=== PATIENT | male | born 1940 | race Caucasian/White ===

== ENCOUNTER 2019-07-02 02:10 | Day surgery (SDC) | payer MEDICARE, OTHER, SELFPAY ==
[2019-06-24 11:14] VITALS: BMI 33.7
--- NOTE | 2019-06-25 15:19 | PM.IMHP ---
H&P: HPI History of Present Illness Chief complaint: BPH with obstruction Narrative: Nando Goodwin is a 78 year old male with long-standing prostatism. He has been a patient of our since September 2005. He has had progressive difficulty voiding with a couple episodes of urinary retention. He is starting to fail medical management with alpha blockers. He prefers not to take 5 alpha reductase inhibitors because he frequently donate blood. Recent urodynamics in May 2019 continued to show an obstructive process with residual volumes of approximately 450 cc. After discussion of therapeutic options, including but not limited to, minimally invasive surgery such as UroliftMarc in laser prostatectomy, he has elected for a TURP. He is aware of risk of this including, but not limited to adverse cardiopulmonary events postoperative bleeding, failure to correct his voiding dysfunction, urinary incontinence and erectile dysfunction. Review of Systems Constitutional: Constitutional: Denies chills, Denies fatigue, Denies fever(s) and Denies headache(s) Eyes: Eyes: Denies blurry vision ENT: Denies vertigo, Denies dizziness, Denies headache(s) and Denies sore throat Cardiovascular: Cardiovascular: Denies chest pain, Denies syncope, Denies lightheadedness, Denies palpitations, Denies dyspnea and Denies dyspnea on exertion Respiratory: Respiratory: Denies hemoptysis, Denies dyspnea and Denies dyspnea on exertion Gastrointestinal: Gastrointestinal: Denies melena, Denies bloating, Denies hematochezia, Denies change in bowel habits, Denies change in stool character, Denies constipation, Denies diarrhea and Denies vomiting Genitourinary: Genitourinary: Denies hematuria, Denies dysuria, Denies testicular pain, Denies urinary frequency, Denies urinary hesitancy and Denies urinary urgency Integumentary/Breasts: Skin/Breast: Denies pruritus, Denies lesions and Denies rash Neurologic: Denies confusion, Denies vertigo, Denies dizziness, Denies syncope and Denies headache(s) Psychiatric: Psychiatric: Denies anxiety, Denies change in appetite and Denies confusion Endocrine: Endocrine: Denies fatigue and Denies palpitations PMFSH Social History Social History Gender identity (if verbalized by the patient): Male Meds Home Medications and Allergies Home Medications Medication Instructions Recorded Confirmed Type Adult One Daily Multivitamin 1 caplet PO DAILY 06/24/19 06/24/19 History Tylenol 350 mg PO DAILY 06/24/19 06/24/19 History ferrous fumarate-iron ps cmplx 1 tablet PO DAILY 06/24/19 06/24/19 History ibuprofen 600 mg PO HS 06/24/19 06/24/19 History naproxen 250 mg PO DAILY 06/24/19 06/24/19 History nifedipine 30 mg PO DAILY 06/24/19 06/24/19 History omega 1-vew-psc-fish oil [[place]-3] 1 cap PO DAILY 06/24/19 06/24/19 History tramadol 50 mg PO TID 06/24/19 06/24/19 History Allergies Allergy/AdvReac Type Severity Reaction Status Date / Time No Known Allergies Allergy Unverified 06/24/19 11:24 Exam Const: General: healthy appearing, comfortable, no acute distress and well developed; No confusion Nutritional Appearance: well nourished Orientation/consciousness: patient oriented x3 and No confusion HENMT: Head: normocephalic and atraumatic Ears: external ears normal Face and sinus: normal facial exam Mouth: Yes lip normal Teeth and gingiva: dentition normal Eyes: General: appearance normal, both eyes and all related structures Alignment and Position: alignment normal Eyelids: eyelids normal Cornea: corneas normal Pupils: Equal, round and reactive pupils present EOM: EOMs intact bilaterally Neck: Neck: normal visual inspection, full ROM and no JVD Chest: Chest palpation & inspection: normal inspection of the chest Resp: Effort & Inspection: normal respiratory effort and no use of accessory muscles Auscultation: clear to auscultation bilaterally Cardio: Jugular venous
[2019-07-02] VITALS (15 sets, daily range): BP systolic 96–156; BP diastolic 54–94; PULSE 60–94; RESP 12–20; TEMP 35.8–36.6; O2SAT 93–100
--- NOTE | 2019-07-02 07:32 | WPDHPUPDATE1 ---
History and Physical Update Update Date/Time: 07/02/19 07:32 History and Physical has been reviewed, including an updated exam of the patient. There are NO changes in the patient's condition. Risks, benefits, and alternatives have been discussed and questions answered. Patient agrees to proceed with procedure.
--- NOTE | 2019-07-02 09:42 | ECG_ITS ---
Measurements Intervals [place] Rate: 81 P: 19 MO: 201 QRS: -27 QRSD: 124 T: 33 QT: 382 QTc: 444 Interpretive Statements SINUS RHYTHM RSR' IN V1 OR V2, CONSIDER RIGHT VENTRICULAR HYPERTROPHY OR RIGHT VCD BORDERLINE R WAVE PROGRESSION, ANTERIOR LEADS BORDERLINE ECG Electronically Signed On 07-02-2019 9:59:44 CDT by Aakash Kearns D.O.
--- NOTE | 2019-07-02 10:03 | P.PNAN_ITS ---
Anes - Initial Pre Proc Eval Procedure: Operation Date: 07/02/19 11:30 Proposed Procedures p Trans Urethral Resection Prostate - Jakub Rosa MD Date/Time: 07/02/19 10:03 Surgeon: Jakub Rosa MD Pre Op Diagnosis: BPH with obstruction Patient Data Age: 78 Gender: M Height: 5 ft 7 in Weight: 94.9 kg Last Vital Signs Temp 36.6 C 07/02/19 09:26 Pulse 86 07/02/19 09:26 Resp 20 07/02/19 09:26 BP 145/79 H 07/02/19 09:26 Pulse Ox 97 07/02/19 09:26 Allergies Allergy/AdvReac Type Severity Reaction Status Date / Time No Known Allergies Allergy Unverified 07/02/19 09:33 Home Medications Medication Instructions Recorded Confirmed Type Adult One Daily Multivitamin 1 caplet PO DAILY 06/24/19 07/02/19 History Tylenol 350 mg PO DAILY 06/24/19 07/02/19 History ferrous fumarate-iron ps cmplx 1 tablet PO DAILY 06/24/19 07/02/19 History ibuprofen 600 mg PO HS 06/24/19 07/02/19 History naproxen 250 mg PO DAILY 06/24/19 07/02/19 History nifedipine 30 mg PO DAILY 06/24/19 07/02/19 History omega 2-dsg-dcs-fish oil [[place]-3] 1 cap PO DAILY 06/24/19 07/02/19 History tramadol 50 mg PO TID 06/24/19 07/02/19 History Patient hx anesthesia problems: none Family hx anesthesia problems: [facility] Past Medical History Medical History Chronic pain syndrome Hypertension Obesity Social History Social History Gender identity (if verbalized by the patient): Male Anes - Eval Final PreProcedure Day of Procedure 07/02/19 10:03 Patient weight: obese Heart: regular rate and rhythm Lungs: clear to auscultation Airway: Mallampati scale Neurological: alert and oriented ASA classification: I Emergent: no Anesthetic plan: proceed Anesthesia type and monitoring: general LMA and standard monitoring Informed Consent: The patient's anesthetic plan and its attendant risks and benefits were discussed with the patient/family/POA. Questions were solicited and answers provided to the satisfaction of the patient/family/POA.
[2019-07-02] MEDS: LACTATED RINGERS 1,000 ML 30 ML IV CONT (10:16)
[2019-07-02] MEDS: ceFAZolin 2 GM/D5W 50 ML 2 GM/50 ML BAG IVPB (11:36)
--- NOTE | 2019-07-02 13:00 | PM.PROC ---
Procedure Note - Detailed Date of procedure: 07/02/19 Pre-op diagnosis: BPH with obstruction Post-op diagnosis: same Procedure performed: TURP Description of procedure: The patient was brought to the operative suite where he is prepped and draped in routine sterile fashion while in the dorsal lithotomy position after the uneventful induction of a general LMA anesthetic. A 27 [place] resectoscope sheath was placed into his bladder. He had no urethral strictures. The patient had trilobar hyperplasia with a large median lobe. The bladder itself was endoscopically normal, showing no mucosal hyperemia, intravesical neoplasm or foreign bodies. There was a single, orthotopic ureteral orifice bilaterally. These orifices were identified and preserved throughout the remainder of the procedure. Attention was first turned to resection of the median lobe. This resection was undertaken from the bladder neck to the verumontanum and carried out until the transverse fibers of the bladder neck were identified. The left lateral lobe was then resected starting at the 6 o'clock position, working counter clockwise to the 12 o'clock position. Again, resection was carried out from the bladder neck to the verumontanum until the capsular fibers of the prostate were identified. The right lateral lobe was resected in a similar fashion starting at the 6 o'clock position working clockwise to the 12 o'clock position and carried out until the capsular fibers of the prostate were identified. Apical tissue was then circumferentially resected. All chips were evacuated from the bladder using an [employer] evacuator. Hemostasis was obtained with electric cautery. The ureteral orifices were again inspected and found to be without injury. Estimated blood loss throughout this procedure was []cc. The patient was taken to recovery room having tolerated this well. Anesthesia: GLMA Surgeon: Jakub Rosa MD Estimated blood loss (mL): 150 Drains: Yes Packing: No Pathology: yes Complications: No immediate complications Condition: stable Disposition: PACU
--- NOTE | 2019-07-02 14:53 | SUR.PHASEI ---
1420 DR TEJADA AT BEDSIDE- ASSESSING URINE COLOR. TRACTION APPLIED TO LOVELL CATHETER WITH TAPE PER
[2019-07-02] MEDS: HYOSCYAMINE SULFATE 0.125 MG TABLET SUBLINGUAL ×2 (16:01→23:03)
[2019-07-02] MEDS: MORPHINE SULFATE 2 MG/ML INJ IV PUSH (16:10)
--- NOTE | 2019-07-02 16:45 | PC.NURSE ---
Dr Rosa notified of bloody thick red urine with CBI running at wide open rate. CBI and villela occluded. Irrigated villela with 200 cc NS - returns slugglishly via syringe with several moderate sized red clots noted. CBI then returned at wide open rate with urine flowing freely. Patient c/o severe bladder spasms and pressure and incontinent of stool. Dr Rosa will see patient.
--- NOTE | 2019-07-02 16:46 | PC.NURSE ---
Dr Rosa at bedside. Villela removed after irrigation and replaced with #[address] ville[address]. Patient tolerated well - injected with Urojets x 2 prior to villela reinsertion.
--- NOTE | 2019-07-02 16:55 | ADMGEN ---
This patient, Nando Goodwin, was admitted to [facility] Surg Room 307-01. Patient/family oriented to hospital policies and general routines including ID bracelet, bed and alarms, visiting hours, pain management, procedures, bathroom and other care routines, personal items, smoking policy, room service/diet, and visiting hours. Valuables list has been completed. Information on how to activate the Rapid Response Team has been discussed. Patient/Family are encouraged to report perceived risks to care and to ask questions if they do not understand what they are told or what they should do.
[2019-07-02] MEDS: LIDOCAINE HCL 2% GEL UROJET 10 ML PKG MUCOUS MEM (16:59)
[2019-07-02] MEDS: DOCUSATE SODIUM 100 MG CAPSULE PO (17:13)
[2019-07-02 21:07] LABS: Hemoglobin 11.8 g/dL (14.0-18.0)
[2019-07-02] MEDS: DEXTROSE 5%/LACTATED RINGERS 1,000 ML 125 ML IV CONT (21:15)
[2019-07-02 21:59] LABS: Glucose Point of Care 198 (65-105)
[2019-07-03 02:00] VITALS: BP 131/61; PULSE 83; RESP 16; TEMP 36.4; O2SAT 98
[2019-07-03] MEDS: DEXTROSE 5%/LACTATED RINGERS 1,000 ML 125 ML IV CONT (05:30)
[2019-07-03] MEDS: HYOSCYAMINE SULFATE 0.125 MG TABLET SUBLINGUAL (05:31)
[2019-07-03 06:00] VITALS: BP 127/60; PULSE 88; RESP 18; TEMP 36.5; O2SAT 98
[2019-07-03 06:08] LABS: Hematocrit 30.4 % (42.0-52.0); Hemoglobin 10.2 g/dL (14.0-18.0)
[2019-07-03 06:20] LABS: Blood Urea Nitrogen 30 mg/dL (9-20); Calcium 7.6 mg/dL (8.4-10.2); Carbon Dioxide 27 mmol/L (22-30); Chloride 102 mmol/L (98-107); Estimated CRCL calculation 38 ml/min; Estimated Glomerular Filt Rate 42; Glucose 169 mg/dL (75-110); Potassium 4.5 mmol/L (3.4-5.0); Sodium 133 mmol/L (137-145)
--- NOTE | 2019-07-03 07:55 | WPDUROPN2 ---
Progress Note: A&P Assessment and Plan (1) BPH loc w urin obs/LUTS: Code(s): N40.1 - Benign prostatic hyperplasia with lower urinary tract symptoms Status: Acute Assessment and Plan: Challenging post-TURP management. Very large prostate resection with moderate post-op hematuria (as expected) exacerbated by intractable bladder spasms. Urine this morning essentially clear on CBI. Spasms controlled with sublingual Levsin and B/O suppositories. Will try stopping CBI throughout today. Subjective Subjective Date/Time Seen: 07/03/19 07:55 POD #1 TURP (large prostate) Comfortable, no abd. pain, n/v. Review of Systems Cardiovascular: Cardiovascular: Denies chest pain, Denies lightheadedness, Denies palpitations and Denies dyspnea Respiratory: Respiratory: Denies dyspnea Gastrointestinal: Gastrointestinal: Denies diarrhea, Denies nausea and Denies vomiting Genitourinary: Genitourinary: Denies hematuria and Denies dysuria Endocrine: Endocrine: Denies palpitations Exam Const: General: no acute distress Resp: Effort & Inspection: normal respiratory effort GI: Inspection: non-distended GI Palp: No abdominal tenderness and No Guarding due to palpation present (GI) Auscultation: normal bowel sounds Urinary Catheter: Urinary Catheter: urine pink Objective Data Vital Signs Vital Signs: Vital Signs - 24 hr 07/02/19 09:26 07/02/19 13:03 07/02/19 13:09 Temperature 97.9 F 97.2 F L Pulse Rate 86 70 Respiratory Rate 20 12 12 Blood Pressure 145/79 H 142/92 H Pulse Oximetry 97 97 97 07/02/19 13:20 07/02/19 13:35 07/02/19 13:50 Temperature Pulse Rate 72 65 65 Respiratory Rate 16 13 14 Blood Pressure 133/68 136/86 148/80 H Pulse Oximetry 98 99 93 07/02/19 14:00 07/02/19 14:15 07/02/19 14:30 Temperature Pulse Rate 70 65 60 Respiratory Rate 14 12 12 Blood Pressure 150/93 H 156/94 H 138/76 Pulse Oximetry 97 98 98 07/02/19 14:45 07/02/19 15:10 07/02/19 15:25 Temperature 97.4 F L 96.4 F L Pulse Rate 67 74 85 Respiratory Rate 12 18 18 Blood Pressure 133/85 147/78 H 120/69 Pulse Oximetry 98 96 98 07/02/19 15:55 07/02/19 21:15 07/02/19 22:00 Temperature 97.1 F L 97.5 F L Pulse Rate 94 88 Respiratory Rate 16 18 Blood Pressure 120/67 96/54 L 118/58 L Pulse Oximetry 100 99 07/03/19 02:00 07/03/19 06:00 Temperature 97.6 F 97.7 F Pulse Rate 83 88 Respiratory Rate 16 18 Blood Pressure 131/61 127/60 Pulse Oximetry 98 98 Intake/Output Intake/Output: Intake & Output 06/30/19 07/01/19 07/02/19 07/03/19 23:59 23:59 23:59 23:59 Intake Total 6100 1000 Output Total 8050 Balance -1950 1000 Meds/Results Medications: Active Medications Generic Name Dose Route Start Last Admin Trade Name Freq PRN Reason Stop Dose Admin Hydrocodone Bitart/Acetaminophen 1 tab 07/02/19 14:55 [place] 5-325 Mg PO Q4H PRN Pain Rated 1-6 Belladonna Alkaloids/Opium 30 mg 07/03/19 00:00 07/03/19 07:07 B & O 15-A Suppos RECTAL 30 mg Q6HR KASHIF Administration Cephalexin HCl 500 mg 07/03/19 09:00 Keflex Capsule PO QID [facility] Docusate Sodium 100 mg 07/02/19 17:00 07/02/19 17:13 Colace Capsule PO 100 mg BID KASHIF Administration Hyoscyamine 0.125 mg 07/02/19 14:55 07/03/19 05:31 Levsin Tablet SUBLINGUAL 0.125 mg Q6H PRN Administration Bladder Spasm Dextrose/Lactated Ringer's 1,000 mls @ 125 mls/hr 07/02/19 14:55 07/03/19 05:30 Dextrose 5%/Lactated Ringers IV CONT 125 mls/hr .Q8H KASHIF Administration Morphine Sulfate 2 mg 07/02/19 14:55 07/02/19 16:10 Morphine Sulfate Inj IV PUSH 2 mg Q2H PRN Administration Pain Rated 7-10 Naloxone HCl 0.1 mg 07/02/19 14:55 Narcan IV PUSH Q2M PRN Opiate Reversal Nifedipine 30 mg 07/03/19 09:00 Procardia Xl PO DAILY [facility] Ondansetron HCl 4 mg 07/02/19 14:55 Zofran Inj IV PUSH Q12H PRN Nausea And Vomiting
[2019-07-03] MEDS: DOCUSATE SODIUM 100 MG CAPSULE PO ×2 (09:53→17:38)
[2019-07-03] MEDS: CEPHALEXIN 500 MG CAPSULE PO ×4 (09:53→21:29)
[2019-07-03] MEDS: NIFEdipine 30 MG TAB.ER.24 PO (09:53)
[2019-07-03 10:00] VITALS: BP 108/69; PULSE 104; RESP 18; TEMP 36.3; O2SAT 99
[2019-07-03 14:00] VITALS: BP 123/64; PULSE 96; RESP 18; TEMP 36.4; O2SAT 97
--- NOTE | 2019-07-03 15:53 | WPDANESPN ---
Anes - Prog Note Post-Op Date/Time: 07/03/19 15:53 Cardiovascular status: normal Respiratory status: normal Airway patency: baseline Mental status: baseline Post-Op hydration status: normal Vital Signs: Last Vital Signs Temp 36.3 C L 07/03/19 10:00 Pulse 104 H 07/03/19 10:00 Resp 18 07/03/19 10:00 BP 108/69 07/03/19 10:00 Pulse Ox 99 07/03/19 10:00 I/O: Intake & Output 07/02/19 07/03/19 07/03/19 23:59 07:59 15:59 Intake Total 50 1000 2440 Output Total 500 1450 Balance -450 1000 990 Laboratory Tests 07/03/19 05:08 07/03/19 05:08 07/02/19 07/02/19 07/03/19 20:15 21:02 05:08 Hgb 11.8 L 10.2 L Hct 35.0 L 30.4 L Sodium Potassium Chloride Carbon Dioxide BUN Creatinine Estim Creat Clear Calc Estimated GFR Glucose POC Capillary Glucose 198 H Calcium 07/03/19 05:08 Hgb Hct Sodium 133 L Potassium 4.5 Chloride 102 Carbon Dioxide 27 BUN 30 H Creatinine 1.60 H Estim Creat Clear Calc 38 Estimated GFR 42 L Glucose 169 H POC Capillary Glucose Calcium 7.6 L Post-procedural complaints: none Patient Feedback: Patient satisfied with anesthetic care.
[2019-07-03 18:00] VITALS: BP 120/73; PULSE 99; RESP 18; TEMP 36.9; O2SAT 97
[2019-07-03 22:03] VITALS: BP 144/65; PULSE 97; RESP 18; TEMP 36.6; O2SAT 97
[2019-07-04 02:00] VITALS: BP 140/60; PULSE 97; RESP 20; TEMP 36.9; O2SAT 100
[2019-07-04 06:00] VITALS: BP 149/60; PULSE 94; RESP 18; TEMP 37.4; O2SAT 91
--- NOTE | 2019-07-04 07:40 | WPDUROPN2 ---
Progress Note: A&P Assessment and Plan (1) BPH loc w urin obs/LUTS: Code(s): N40.1 - Benign prostatic hyperplasia with lower urinary tract symptoms Status: Acute Assessment and Plan: POD#2 s/p TURP Rivas out and pt is voiding without difficult Ambulate Reg diet Wean O2 off Discharge planning. Time Spent With Patient Time with patient: 15 - 25 minutes Subjective Subjective Date/Time Seen: 07/04/19 07:40 POD #2 s/p TURP Rivas removed this AM. Has voided several times. Is having loose stools related to stool softner. Has ambulated once. Exam Const: General: cooperative, healthy appearing and comfortable Orientation/consciousness: patient oriented x3 HENMT: Head: normal to inspection Chest: Chest palpation & inspection: normal inspection of the chest Resp: Effort & Inspection: normal respiratory effort GI: GI Palp: No abdominal tenderness Objective Data Vital Signs Vital Signs: Vital Signs - 24 hr 07/03/19 10:00 07/03/19 14:00 07/03/19 18:00 Temperature 36.3 C L 36.4 C 36.9 C Pulse Rate 104 H 96 99 Respiratory Rate 18 18 18 Blood Pressure 108/69 123/64 120/73 Pulse Oximetry 99 97 97 07/03/19 22:03 07/04/19 02:00 07/04/19 06:00 Temperature 36.6 C 36.9 C 37.4 C Pulse Rate 97 97 94 Respiratory Rate 18 20 18 Blood Pressure 144/65 H 140/60 149/60 H Pulse Oximetry 97 100 91 Intake/Output Intake/Output: Intake & Output 07/01/19 07/02/19 07/03/19 07/04/19 23:59 23:59 23:59 23:59 Intake Total 6100 5300 Output Total 8050 3150 1430 Balance -1950 2150 -1430 Meds/Results Medications: Active Medications Generic Name Dose Route Start Last Admin Trade Name Freq PRN Reason Stop Dose Admin Hydrocodone Bitart/Acetaminophen 1 tab 07/02/19 14:55 [place] 5-325 Mg PO Q4H PRN Pain Rated 4-6 Belladonna Alkaloids/Opium 30 mg 07/03/19 00:00 07/04/19 06:01 B & O 15-A Suppos RECTAL 30 mg Q6HR KASHIF Administration Cephalexin HCl 500 mg 07/03/19 09:00 07/03/19 21:29 Keflex Capsule PO 500 mg QID KASHIF Administration Docusate Sodium 100 mg 07/02/19 17:00 07/03/19 17:38 Colace Capsule PO 100 mg BID KASHIF Administration Hyoscyamine 0.125 mg 07/02/19 14:55 07/03/19 05:31 Levsin Tablet SUBLINGUAL 0.125 mg Q6H PRN Administration Bladder Spasm Dextrose/Lactated Ringer's 1,000 mls @ 125 mls/hr 07/02/19 14:55 07/03/19 14:45 Dextrose 5%/Lactated Ringers IV CONT Infused .Q8H KASHIF Infusion Acetaminophen 1,000 mg in 100 mls @ 400 mls/hr 07/03/19 10:15 07/03/19 12:40 Ofirmev 1,000 Mg Ivpb IVPB 07/04/19 10:16 Infused Q6H PRN Infusion Pain Rated 1-3 Morphine Sulfate 2 mg 07/02/19 14:55 07/02/19 16:10 Morphine Sulfate Inj IV PUSH 2 mg Q2H PRN Administration Pain Rated 7-10 Naloxone HCl 0.1 mg 07/02/19 14:55 Narcan IV PUSH Q2M PRN Opiate Reversal Nifedipine 30 mg 07/03/19 09:00 07/03/19 09:53 Procardia Xl PO 30 mg DAILY KASHIF Administration Ondansetron HCl 4 mg 07/02/19 14:55 Zofran Inj IV PUSH Q12H PRN Nausea And Vomiting
[2019-07-04] MEDS: CEPHALEXIN 500 MG CAPSULE PO (08:25)
[2019-07-04] MEDS: NIFEdipine 30 MG TAB.ER.24 PO (08:25)
== END 2019-07-04 10:34 | disposition home or self-care (01) ==
LOC: ANHSURGERY 09:43 → ANH3MEDSUR 23:29
PROVIDERS: PCP Internal Medicine; Visit Provider Urology
PROC: 0VT08ZZ Resection of Prostate, Via Natural or Artificial Opening Endoscopic (ICD-10-PCS; CPT 52601; principal; 2019-07-02 11:30)
DX: N40.1 Benign prostatic hyperplasia with lower urinary tract symptoms (principal); N13.8 Other obstructive and reflux uropathy; N32.89 Other specified disorders of bladder; I10 Essential (primary) hypertension; G89.4 Chronic pain syndrome; E66.9 Obesity, unspecified; Z68.32 Body mass index [BMI] 32.0-32.9, adult; Z79.891 Long term (current) use of opiate analgesic
CPT/HCPCS: 52601; 36415; 80048; 85014; 85018; 88305; 93005; A9270; C1758; J0131; J0690; J1100; J2270; J2405; J2704; J3010; J7120; J7121

== ENCOUNTER 2020-11-09 08:26 | Outpatient (CLI) | payer MEDICARE, OTHER, SELFPAY ==
--- NOTE | ~2020-11-09 | XR_ITS ---
EXAMINATION: XR abdomen/kub 1V DATE: 11/09/2020 08:46 INDICATION: Gross hematuria. TECHNIQUE: A supine view of the abdomen on 2 radiographs was obtained. COMPARISON: CT abdomen and pelvis 11/09/2020 FINDINGS: There are no dilated loops of bowel. There is no urolithiasis. There is a phlebolith in lef t pelvis. There are surgical clips in the pelvis. Surgical clips in the right upper quadrant are like ly from cholecystectomy. IMPRESSION: 1. No urolithiasis. Reviewed, dictated and finalized at location B. IMPRESSION: 1. No urolithiasis.
--- NOTE | ~2020-11-09 | CT_ITS ---
EXAMINATION: CT abdomen pelvis wo/w con DATE: 11/09/2020 09:21 INDICATION: Gross hematuria. TECHNIQUE: Computed tomography (CT) of the abdomen and pelvis was performed without and with intraven ous contrast using a total of 130 mL Omnipaque-350 intravenous contrast with a double-bolus technique for simultaneous opacification of the renal parenchyma and renal collecting system. Automated exposu re control and iterative reconstruction technique were employed. The dose-length product was 2563.00 mGy-cm. COMPARISON: None FINDINGS: The visualized portions of the lung bases demonstrate mild atelectasis. A calcified right lung nodule and calcified right hilar lymph nodes are consistent with old granulomatous disease. No pleural effu bailey. The heart size is normal. There are coronary artery calcifications. No pericardial effusion. Th ere is a small sliding hiatal hernia. The liver and spleen are normal. There are changes of cholecyst ectomy. The pancreas and adrenal glands are normal. There is a 4 mm cyst in right kidney. There are p eripelvic cysts in left kidney measuring up to 2.7 cm. There is no urolithiasis. The ureters are well opacified and are normal. The prostate is moderately enlarged. There are likely changes of transuret hral resection of the prostate. The bladder demonstrates a trabeculated wall, likely secondary to chr onic outlet obstruction. There are bilateral inguinal hernias containing fat. There is diverticulosis of the colon without evidence of diverticulitis. There are no dilated loops of bowel. The appendix i s normal. There are no pathologically enlarged lymph nodes. There is no free intraperitoneal fluid. T here is severe lumbar spondylosis. IMPRESSION: 1. No specific etiology for hematuria. Reviewed, dictated and finalized at location B.
[2020-11-09 09:00] LABS: Estimated Glomerular Filt Rate > 60
== END 2020-11-09 08:27 | disposition home or self-care (01) ==
LOC: ANHIMG 08:27
PROVIDERS: PCP Internal Medicine; Visit Provider Urology
DX: R31.0 Gross hematuria (principal)
CPT/HCPCS: 74018; 74178; Q9967

== ENCOUNTER 2021-02-24 11:23 | Outpatient (CLI) | payer MEDICARE, OTHER, SELFPAY ==
--- NOTE | 2021-02-24 11:30 | ECG_ITS ---
Measurements Intervals [place] Rate: 77 P: 42 IL: 216 QRS: -16 QRSD: 135 T: 45 QT: 406 QTc: 462 Interpretive Statements SINUS RHYTHM WITH FIRST DEGREE AV BLOCK ATRIAL PREMATURE COMPLEX RIGHT BUNDLE BRANCH BLOCK INFERIOR INFARCT, AGE INDETERMINATE ABNORMAL ECG Electronically Signed On 02-24-2021 11:55:00 STAMP PRESSER by Aakash Kearns D.O.
== END 2021-02-24 11:24 | disposition home or self-care (01) ==
LOC: ANHSURGERY 11:30
PROVIDERS: PCP Internal Medicine; Visit Provider Urology
DX: I10 Essential (primary) hypertension (principal); Z01.818 Encounter for other preprocedural examination; I44.0 Atrioventricular block, first degree; I45.10 Unspecified right bundle-branch block
CPT/HCPCS: 93005

== ENCOUNTER 2021-03-02 00:34 | Day surgery (SDC) | payer MEDICARE, OTHER, SELFPAY ==
[2021-02-23 12:58] VITALS: BMI 35.2
--- NOTE | 2021-02-23 13:09 | PC.NURSE ---
Report to the Outpatient Waiting Room, entrance under the green pavilion located off [facility], at time __11:45AM on date __03/02/21 . OR Time: ___1:45PM . - You and your visitor will be asked a series of questions to screen for COVID 19 for your protection. - A mask is required within the hospital. - Only one visitor is allowed at this time. Patient visitors will be guided where to wait when not with patient. Preoperative COVID Testing Requirements: No COVID Test needed if: (proof is required; if not received patient will have Rapid Test prior to entry) - Patient has received COVID Vaccine at least 14 days prior to procedure date or - Patient has positive COVID test result within last 90 days of surgery date. COVID Test needed if above criteria is not met If not COVID vaccinated a COVID test must be conducted within 72 hours of surgery and patient is asked to isolate self from time of testing until procedure. You will go to the [facility] for your COVID testing. The [facility] [facility] is located at the corner of [address] [facility]. You will only be called if COVID results are positive and your surgeon may reschedule your elective surgery date. Patients may have clear liquids (water, carbonated beverages, clear teas, apple juice) until 3 hours prior to surgery with a maximum of 20 ounces. - No food from midnight until time of surgery - Infants may have breast milk until 4 hours before surgery, infant formula 6 hours prior to surgery. - Children will be allowed to drink immediately following surgery. If applicable, please bring a bottle or sippy cup to assist with drinking. Juice, water, soda, and popsicles are readily available. For infants on formula, please bring formula the day of surgery. Pacifiers are allowed. Take the following medications with a SIP of water the morning of surgery: NIFEDIPINE Medications to discontinue per physician HOLD VIT/SUPPLEMENTS 3 DAYS PRE-OP Date to take last dose 02/27/21 Please no make-up, nail slovenian, hairspray, perfume, deodorant, or body powder the day of surgery. No jewelry (including any body piercings) or valuables the day of surgery, leave them at home. Please take a shower or bath the night before, or the morning of, surgery with an antibacterial soap. Wear comfortable, loose fitting clothing. Children are encouraged to wear pajamas. - Jewelry must be removed prior to entering the operating room. Rings and piercings that are not removed may be cut off. - The hospital will not accept responsibility for valuables. - Please leave all valuables, including medications, at home the day of surgery. If you are going home after surgery, a licensed jinrikisha driver must drive you home. - NO public transportation without another adult. - We recommend that an adult stay with you for 24 hours following discharge. - We also recommend that you do not drive, make important decision, drink alcoholic beverages, or take any drugs that were not prescribed by your health care provider for at least 24 hours after your discharge time. For Pediatric surgeries, we recommend two adults accompany the child home (only one inside the building at this time). Follow any additional instructions given to you from your surgeon. Telephone instructions given to ___PATIENT and asked if any additional questions and then verbalized understanding. Patient advised to call surgeon office or pre surgery nurse liaison [phone] if any additional questions.
--- NOTE | 2021-02-27 07:23 | P.HP_ITS ---
History of Present Illness History of Present Illness Consent: Risks, benefits, and alternatives have been discussed and questions answered. Patient agrees to proceed with procedure. Chief complaint: gross hematuria, bladder stone Narrative: Nando Goodwin is a 80 year old male Who recently underwent evaluation for solitary episode transient gross hematuria. CT abd/pelvis w/wo contrast showed upper urinary tracts but bladder calculus. Cystoscopy showed s mall to moderate-sized bladder calculus which was likely just big enough not to be removed in presents for cystoscopy bladder stone extraction. He is aware of the risk urethral injury, hematuria and subsequent urethral stricture Review of Systems Cardiovascular: Cardiovascular: Denies chest pain, Denies lightheadedness, Denies palpitations and Denies dyspnea Respiratory: Respiratory: Denies dyspnea Gastrointestinal: Gastrointestinal: Denies diarrhea, Denies nausea and Denies vomiting Genitourinary: Genitourinary: Denies hematuria and Denies dysuria Endocrine: Endocrine: Denies palpitations [facility] Past Medical History Medical History (Updated 02/27/21 @ 07:25 by Jakub Rosa MD) Chronic pain syndrome Hypertension Obesity Social History Social History Smoking packs per day: 3 Smoking cigarettes per day: 60.0 Years smoked: 4 Smoking pack-years: 12.00 Smoking status: Former smoker Tobacco type: cigarettes Second hand tobacco smoke exposure: No Smoking end date: 09/22/1956 Alcohol intake: never Substance use: never Additional living arrangements comments: SPOUSE Gender identity (if verbalized by the patient): Male Spiritual care concerns: No Agree to blood products: Yes Meds Home Medications and Allergies Home Medications Medication Instructions Recorded Confirmed Type naproxen 250 mg PO BID PRN 06/24/19 02/23/21 History nifedipine 30 mg PO QAM 06/24/19 02/23/21 History omega 3-omz-xnu-fish oil [[place]-3] 1 cap PO DAILY 06/24/19 02/23/21 History acetaminophen [Tylenol Extra 1,000 mg PO Q6H PRN 02/23/21 02/23/21 History Strength] ferrous fumarate 55 mg PO DAILY 02/23/21 02/23/21 History ibuprofen 600 mg PO Q6H PRN 02/23/21 02/23/21 History loratadine [Claritin] 10 mg PO DAILY 02/23/21 02/23/21 History multivitamin [Multiple Vitamin] 1 tablet PO DAILY 02/23/21 02/23/21 History pregabalin 50 mg PO TID 02/23/21 02/23/21 History Allergies Allergy/AdvReac Type Severity Reaction Status Date / Time No Known Allergies Allergy Unverified 02/23/21 12:48 Exam Const: General: no acute distress Resp: Effort & Inspection: normal respiratory effort GI: Inspection: non-distended GI Palp: No abdominal tenderness and No Guarding due to palpation present (GI) Auscultation: normal bowel sounds Assessment and Plan Assessment and plan (1) BPH loc w urin obs/LUTS: Code(s): N40.1 - Benign prostatic hyperplasia with lower urinary tract symptoms Status: Acute (2) Bladder stone: Code(s): N21.0 - Calculus in bladder Status: Acute Assessment and Plan: * Cystoscopy, bladder stone extraction
--- NOTE | 2021-03-02 06:50 | PM.HPGS ---
History of Present Illness History of Present Illness Consent: Risks, benefits, and alternatives have been discussed and questions answered. Patient agrees to proceed with procedure. Chief complaint: gross hematuria, bladder stone Narrative: Nando Goodwin is a 80 year old male [facility] Past Medical History Medical History (Updated 02/27/21 @ 07:25 by Jakub Rosa MD) Chronic pain syndrome Hypertension Obesity Social History Social History Smoking packs per day: 3 Smoking cigarettes per day: 60.0 Years smoked: 4 Smoking pack-years: 12.00 Smoking status: Former smoker Tobacco type: cigarettes Second hand tobacco smoke exposure: No Smoking end date: 09/22/1956 Alcohol intake: never Substance use: never Living arrangements: with family Additional living arrangements comments: SPOUSE Gender identity (if verbalized by the patient): Male Spiritual care concerns: No Agree to blood products: Yes Meds Home Medications and Allergies Home Medications Medication Instructions Recorded Confirmed Type naproxen 250 mg PO BID PRN 06/24/19 02/23/21 History nifedipine 30 mg PO QAM 06/24/19 02/23/21 History omega 5-nmr-wzr-fish oil [[place]-3] 1 cap PO DAILY 06/24/19 02/23/21 History acetaminophen [Tylenol Extra 1,000 mg PO Q6H PRN 02/23/21 02/23/21 History Strength] ferrous fumarate 55 mg PO DAILY 02/23/21 02/23/21 History ibuprofen 600 mg PO Q6H PRN 02/23/21 02/23/21 History loratadine [Claritin] 10 mg PO DAILY 02/23/21 02/23/21 History multivitamin [Multiple Vitamin] 1 tablet PO DAILY 02/23/21 02/23/21 History pregabalin 50 mg PO TID 02/23/21 02/23/21 History Allergies Allergy/AdvReac Type Severity Reaction Status Date / Time No Known Allergies Allergy Unverified 02/23/21 12:48
--- NOTE | 2021-03-02 08:46 | P.PNAN_ITS ---
Anes - Initial Pre Proc Eval Procedure: Operation Date: 03/02/21 13:45 Proposed Procedures p Cystoscopy, with Bladder Stones Extraction - Jakub Rosa MD Date/Time: 03/02/21 08:46 Surgeon: Jakub Rosa MD Pre Op Diagnosis: gross hematuria, bladder stone Patient Data Age: 80 Gender: M Height: 1.7 m Weight: 102 kg Allergies Allergy/AdvReac Type Severity Reaction Status Date / Time No Known Allergies Allergy Unverified 02/23/21 12:48 Home Medications Medication Instructions Recorded Confirmed Type naproxen 250 mg PO BID PRN 06/24/19 02/23/21 History nifedipine 30 mg PO QAM 06/24/19 02/23/21 History omega 6-roy-ivx-fish oil [[place]-3] 1 cap PO DAILY 06/24/19 02/23/21 History acetaminophen [Tylenol Extra 1,000 mg PO Q6H PRN 02/23/21 02/23/21 History Strength] ferrous fumarate 55 mg PO DAILY 02/23/21 02/23/21 History ibuprofen 600 mg PO Q6H PRN 02/23/21 02/23/21 History loratadine [Claritin] 10 mg PO DAILY 02/23/21 02/23/21 History multivitamin [Multiple Vitamin] 1 tablet PO DAILY 02/23/21 02/23/21 History pregabalin 50 mg PO TID 02/23/21 02/23/21 History Patient hx anesthesia problems: none Family hx anesthesia problems: none Results Review: All pre-operative results and documents have been reviewed as part of the pre-operative evaluation. [facility] Past Medical History Medical History (Updated 02/27/21 @ 07:25 by Jakub Rosa MD) Chronic pain syndrome Hypertension Obesity Social History Social History Smoking packs per day: 3 Smoking cigarettes per day: 60.0 Years smoked: 4 Smoking pack-years: 12.00 Smoking status: Former smoker Tobacco type: cigarettes Second hand tobacco smoke exposure: No Smoking end date: 09/22/1956 Alcohol intake: never Substance use: never Living arrangements: with family Additional living arrangements comments: SPOUSE Gender identity (if verbalized by the patient): Male Spiritual care concerns: No Agree to blood products: Yes Anes - Eval Final PreProcedure Day of Procedure 03/02/21 08:46 Patient weight: obese Heart: regular rate and rhythm Lungs: clear to auscultation and normal air movement Airway: Mallampati scale class II Neurological: alert and oriented Last oral intake: >/= 8 hours ASA classification: III Emergent: no Anesthetic plan: proceed Anesthesia type and monitoring: general LMA and standard monitoring Results Review: All pre-operative results and documents have been reviewed as part of the pre-operative evaluation. Informed Consent: The patient's anesthetic plan and its attendant risks and benefits were discussed with the patient/family/POA. Questions were solicited and answers provided to the satisfaction of the patient/family/POA.
[2021-03-02 12:40] VITALS: BP 139/82; PULSE 72; RESP 18; TEMP 36.3; O2SAT 100; BMI 35.6
--- NOTE | 2021-03-02 12:41 | SUR.PREOP ---
1230; DR TEJADA IN ROOM SPEAKING TO PT AND SPOUSE, SURGERY IS DELAYED APPROX 30-45 MIN
[2021-03-02] MEDS: LACTATED RINGERS 1,000 ML 30 ML IV CONT (12:52)
[2021-03-02] MEDS: ceFAZolin 2 GM/D5W 50 ML 2 GM/50 ML BAG IVPB (14:43)
--- NOTE | 2021-03-02 14:54 | WPDHPUPDATE1 ---
History and Physical Update Update Date/Time: 03/02/21 14:54 History and Physical has been reviewed, including an updated exam of the patient. There are NO changes in the patient's condition. Risks, benefits, and alternatives have been discussed and questions answered. Patient agrees to proceed with procedure.
[2021-03-02] MEDS: LIDOCAINE HCL 2% GEL UROJET 10 ML PKG MUCOUS MEM (15:00)
--- NOTE | 2021-03-02 15:14 | P.OP_ITS ---
Procedure Note - Detailed Date of Procedure 03/02/21 Pre-op Diagnosis Gross hematuria, bladder stone Post-op Diagnosis other (Gross hematuria, urethral stricture, bladder stone) Procedure Performed Cystoscopy, urethral dilatation and extraction bladder stone Surgeon Jakub Rosa MD Past Due Accounts Clerk None Anesthesia general Findings 1. Moderately constricting bulbous urethral stricture 2. Saucer-shaped 1.5cm bladder calculus Description of Procedure Patient is brought to the operative suite was prepped draped in routine sterile fashion while in dorsal lithotomy position. 2% xylocaine jelly was introduced intraurethrally and allowed to stand for an appropriate period of time. Cystoscopy is undertaken with a 19 F rigid cystoscope. He is moderately constricting bulbous urethral stricture which I dilated from 18-26 F using Lior sounds. I was then able to extract is 1.5 cm flat ovoid bladder calculus 1st with a grasping forceps and then with a disposable stone basket. Remainder of the patient's bladder was endoscopically normal without intravesical neoplasm or additional foreign bodies. I removed the cystoscope and did place an 18 F coude catheter to drainage temporarily. The patient tolerated the procedure well was taken recovery room good condition. Estimated Blood Loss 0 Drains Yes Packing No Pathology yes Complications No immediate complications Condition stable Disposition PACU
[2021-03-02 15:20] VITALS: BP 122/79; PULSE 59; RESP 16; O2SAT 94
[2021-03-02 15:50] VITALS: BP 138/82; PULSE 65; RESP 16; O2SAT 95
[2021-03-02 16:20] VITALS: BP 128/80; PULSE 67; RESP 16
== END 2021-03-02 16:35 | disposition home or self-care (01) ==
PROVIDERS: PCP Internal Medicine; Visit Provider Urology
PROC: 0TCB8ZZ Extirpation of Matter from Bladder, Via Natural or Artificial Opening Endoscopic (ICD-10-PCS; CPT 52352; principal; 2021-03-02 13:45)
DX: N21.0 Calculus in bladder (principal); N35.912 Unspecified bulbous urethral stricture, male; N40.1 Benign prostatic hyperplasia with lower urinary tract symptoms; I10 Essential (primary) hypertension; Z87.891 Personal history of nicotine dependence; E66.9 Obesity, unspecified; Z68.35 Body mass index [BMI] 35.0-35.9, adult
CPT/HCPCS: 52281; 82365; 88300; A9270; J0690; J1100; J2405; J2704; J3010; J7120